=== PATIENT | female | born 1955 | race Caucasian/White ===

== ENCOUNTER 2019-12-22 08:55 | Outpatient (CLI) | payer MEDICARE, BC, SELFPAY ==
--- NOTE | 2019-12-22 09:08 | MM_ITS ---
WS: [id number] BILATERAL DIGITAL DIAGNOSTIC MAMMOGRAM MAMMOGRAPHY WITH CAD CLINICAL INFORMATION: PAINFUL BREASTS HISTORY: COMPARISON: November 15, 2018 TECHNIQUE: Bilateral CC, MLO, and ML views. FINDINGS: History of bilateral breast reduction. Scattered fibroglandular densities bilaterally. No suspicious focal mass, asymmetry, calcifications, or architectural distortion. No focal abnormalit ies left breast. Ultrasound left breast is pending. ULTRASOUND BREAST LEFT TECHNIQUE: Ultrasound left breast focused area of concern. CLINICAL INFORMATION: PAINFUL BREASTS COMPARISON: None. FINDINGS: Ultrasound left breast 2:00 position area of palpable concern. Hypoechoic slightly lobulated lesion a t the 2:00 position 2 cm from the nipple. This lesion is somewhat ill-defined and appears taller than wide. Hypoechoic lesion measures approximately 7.6 x 3.5 x 6.0 mm and is indeterminate. Recommend fu rther evaluation with ultrasound-guided biopsy. Additional tiny incidental cystic lesion at the 2:00 position measuring 3.1 x 1.9 mm MM/[place] [id number] IMPRESSION: BI-RADS: 4B-Suspicious: Intermediate FOLLOW UP: US Guided Biopsy Recommended
== END 2019-12-22 08:56 | disposition home or self-care (01) ==
PROVIDERS: Family Provider Family Medicine; PCP Family Medicine; Visit Provider Family Medicine
DX: N63.20 Unspecified lump in the left breast, unspecified quadrant (principal); N64.4 Mastodynia; N64.89 Other specified disorders of breast
CPT/HCPCS: 76642; 77066

== ENCOUNTER 2020-01-05 12:09 | Outpatient (CLI) | payer MEDICARE, BC, SELFPAY ==
--- NOTE | 2020-01-05 12:16 | US_ITS ---
WS: [id number] ULTRASOUND-GUIDED LEFT BREAST BIOPSY HISTORY: LT BREAST MASS at 2:00 COMPARISON: 12/22/2019 Procedure, risks and complications are explained to the patient. Medications are reviewed. Consent is obtained. The mass in the LEFT breast is localized with ultrasound. Skin is cleansed with ChloraPrep and anesth etized with 1% buffered lidocaine. Small dermatome is made. Under sterile conditions mass is biopsied with a 14-gauge Achieve needle. Multiple core biopsies are performed. Material placed in formalin an d sent to pathology for review. No complications encountered. Breast tissue marker (Bard ultrasound enhanced ribbon): Single Patient left the radiology suite with no complications. Patient is instructed to return [place] [facility] with any concerns. 1. Uncomplicated core needle biopsy LEFT breast mass at 2:00. US/[place] [id number] IMPRESSION: PATHOLOGY: Benign breast tissue with interlobular fibrosis. No malignancy. RECOMMENDATION: Annual mammogram. Mammography, ultrasound and pathological findings are concordant.
== END 2020-01-05 12:10 | disposition home or self-care (01) ==
LOC: RAD 12:15
PROVIDERS: Family Provider Family Medicine; PCP Family Medicine; Visit Provider Family Medicine
DX: N63.21 Unspecified lump in the left breast, upper outer quadrant (principal)
CPT/HCPCS: 19083; 19285; 76942; 88305; J2001

== ENCOUNTER 2020-10-30 13:19 | Outpatient (CLI) | payer MEDICARE, BC, SELFPAY ==
--- NOTE | 2020-10-30 13:24 | XR_ITS ---
WS: [id number] DEXA (DUAL ENERGY X-RAY ABSORPTIOMETRY) Bone mineral density was performed using a [employer]It machine. HISTORY: Osteoporosis. COMPARISON: 09/27/2018 Lumbar spine BMD (L1-L4): 0.867 g/cm2 T score: -2.6 Z score: -1.4 Total hip BMD: Left: 0.907 g/cm2. T score: -0.8 Z score: 0.2 Right: 0.890 g/cm2. T score: -0.9 Z score: 0.0 10 year probability of a major osteoporotic fracture is 9.5%. Compared to the prior study from 09/27/2018. Lumbar spine bone mineral density has decrease by 0.9%. Bilateral hips bone mineral density has decreased by 2.3%. XR/XR DEXA peripheral [id number] IMPRESSION: OSTEOPOROSIS based upon the WHO classification for females. Significant decrease in bone mineral density within the hips since the prior .
== END 2020-10-30 13:20 | disposition home or self-care (01) ==
LOC: RADWPI 13:22
PROVIDERS: PCP Family Medicine; Visit Provider Family Medicine
DX: M81.0 Age-related osteoporosis without current pathological fracture (principal)
CPT/HCPCS: 77081

== ENCOUNTER 2021-01-22 10:33 | Outpatient (CLI) | payer MEDICARE, BC, SELFPAY ==
[2021-01-22 10:44] VITALS: BP 162/82; PULSE 66; RESP 18; TEMP 36.6; O2SAT 98
[2021-01-22] MEDS: denosumab 60 mg SDV SUBCUT (10:55)
== END 2021-01-22 10:34 | disposition home or self-care (01) ==
LOC: ONCMED 10:34
PROVIDERS: PCP Family Medicine; Visit Provider Family Medicine
DX: M81.0 Age-related osteoporosis without current pathological fracture (principal)
CPT/HCPCS: 96372; J0897

== ENCOUNTER → 2021-01-24 08:54 | Outpatient (BNVA) | payer MEDICARE, BC, SELFPAY | PROVIDERS: PCP Family Medicine; Referring Provider Family Medicine; Visit Provider Urology | DX: N39.9 Disorder of urinary system, unspecified (principal); R31.9 Hematuria, unspecified; N39.0 Urinary tract infection, site not specified | CPT/HCPCS: 81003; 87077; 87086; 87184 ==

== ENCOUNTER 2021-02-05 13:31 | Outpatient (CLI) | payer MEDICARE, BC, SELFPAY ==
--- NOTE | 2021-02-05 13:39 | MM_ITS ---
WS: [id number] BILATERAL DIGITAL SCREENING MAMMOGRAPHY WITH CAD CLINICAL INFORMATION: SCREENING HISTORY: Screening mammogram. No current complaints. COMPARISON: December 22, 2019 TECHNIQUE: Bilateral CC and MLO views. FINDINGS: Bilateral breast reduction Scattered fibroglandular densities bilaterally. No suspicious focal mass, asymmetry, calcifications, or architectural distortion. No evidence of malignancy. Punctate and lucent centered calcifications. Biopsy clip left breast. MM/[place] [id number] IMPRESSION: BI-RADS: 2-Benign FOLLOW UP: 1 Year Follow-up Recommend return to annual screening mammography.
== END 2021-02-05 13:32 | disposition home or self-care (01) ==
LOC: RADSHAW 13:37
PROVIDERS: PCP Family Medicine; Visit Provider Family Medicine
DX: Z12.31 Encounter for screening mammogram for malignant neoplasm of breast (principal)
CPT/HCPCS: 77067

== ENCOUNTER → 2021-02-28 09:17 | Outpatient (BNVA) | payer MEDICARE, BC, SELFPAY | PROVIDERS: PCP Family Medicine; Visit Provider Urology | DX: N39.0 Urinary tract infection, site not specified (principal) | CPT/HCPCS: 81003 ==

== ENCOUNTER → 2021-04-15 10:59 | Outpatient (BNVA) | payer MEDICARE, BC, SELFPAY | PROVIDERS: PCP Family Medicine; Visit Provider Urology | DX: R31.29 Other microscopic hematuria (principal) | CPT/HCPCS: 81003; 87077; 87086; 87184 ==

== ENCOUNTER → 2021-07-15 09:03 | Outpatient (BNVA) | payer MEDICARE, BC, SELFPAY | PROVIDERS: PCP Family Medicine; Visit Provider Urology | DX: N39.0 Urinary tract infection, site not specified (principal); R31.29 Other microscopic hematuria | CPT/HCPCS: 81003; 87086; 88112 ==

== ENCOUNTER 2021-08-05 09:08 | Outpatient (CLI) | payer MEDICARE, BC, SELFPAY ==
--- NOTE | 2021-08-05 09:00 | CT_ITS ---
WS: [id number] CT ABDOMEN PELVIS TECHNIQUE: Noncontrast CT of the abdomen and contrast-enhanced CT of the abdomen and pelvis with bryanna nal and sagittal reformatted images. CLINICAL INFORMATION: MICROSCOPIC HEMATURIA COMPARISON: None. DLP: 2879.[address] scans at [facility] use at least one of these dose optimization techniques: automated e xposure control; mA and/or kV adjustment per patient size (includes targeted exams where dose is matc hed to clinical indication); or iterative reconstruction. FINDINGS: Tiny nonobstructing calyceal tip calculi bilaterally. 6 mm calculus in the right renal pelvis without evidence of obstruction. Incidental extra renal pelvi bilaterally. Normal bilateral renal parenchyma l enhancement. Normal cortical medullary phase. Normal excretion. No obstructing ureteral calculi. No hydronephrosis. Small left renal cyst measuring 7 mm. Lung bases are well aerated. Mild diffuse fatty infiltration of the liver. Normal gallbladder. Normal spleen. Small esophageal hiatal hernia. Adrenal glands are normal. Mild fatty atrophy of the pancrea s. Normal sigmoid colon. Fat-containing umbilical hernia. Normal caliber abdominal aorta. CT/CT abdomen pelvis wo/w [id number] IMPRESSION: 1. 6 mm right renal pelvic calculus without evidence of obstruction. 2. Tiny nonobstructing calyceal tip calculi bilaterally. 3. Normal renal parenchymal enhancement. Normal cortical medullary phase and n ephrographic phase. Normal excretion. 4. No filling defects in the ureters. 5. Small left renal cyst measuring 7 mm. 6. Mild diffuse fatty infiltration of the liver. 7. Small esophageal hiatal hernia. 8. No other significant findings.
[2021-08-05 10:14] LABS: Blood Urea Nitrogen 17 mg/dL (8-23); Glomerular Filtration Rate 71.8 mL/min (90-130)
[2021-08-05] MEDS: iohexol 300 mg/mL 100 mL Btl IV (10:35)
== END 2021-08-05 09:09 | disposition home or self-care (01) ==
LOC: RAD 09:10
PROVIDERS: PCP Family Medicine; Visit Provider Urology
DX: R31.29 Other microscopic hematuria (principal); Z20.822 Contact with and (suspected) exposure to COVID-19; K44.9 Diaphragmatic hernia without obstruction or gangrene; K76.0 Fatty (change of) liver, not elsewhere classified; Q61.01 Congenital single renal cyst
CPT/HCPCS: 36415; 74178; 81003; 82565; 84520; 87635

== ENCOUNTER 2021-08-20 22:47 | Emergency (ER) | payer MEDICARE, BC, SELFPAY ==
--- NOTE | 2021-08-20 22:48 | XRR_ITS ---
PROCEDURE INFORMATION: Exam: XR Chest Exam date and time: 08/20/2021 10:48 PM Age: 65 years old Clinical indication: Pain; Shortness of breath; Patient HX: Central chest pressure with SOB. 2 weeks post covid infection. ; Additional info: Cp TECHNIQUE: Imaging protocol: XR of the chest. Views: 1 view. COMPARISON: CT abdomen pelvis wo/w [id number] 08/05/2021 10:29 AM FINDINGS: Lungs: Unremarkable. No consolidation. Pleural spaces: Unremarkable. No pleural effusion. No pneumothorax. Heart/Mediastinum: Unremarkable. No cardiomegaly. Bones/joints: Unremarkable. XR/XR chest 1V portable [id number] IMPRESSION: No acute findings. Radiation Dose CTDIVOL = (mGy): DLP = (mGy-cm)
--- NOTE | 2021-08-20 22:49 | ECG_ITS ---
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 Measurements Intervals [place] Rate: 76 P: 70 [place]: 142 QRS: 66 QRSD: 90 T: 61 QT: 416 QTc: 469 Interpretive Statements SINUS RHYTHM Compared to ECG 07/11/2017 13:27:37 T-wave abnormality no longer present Electronically Signed On 08-20-2021 23:48:11 CRANKSHAFT BALANCER by Lorin Guevara M.D. [id number]
[2021-08-20 22:55] VITALS: BP 174/90; PULSE 83; RESP 19; TEMP 36.6; O2SAT 97; BMI 27.4
--- NOTE | 2021-08-20 22:56 | W.ED.CHESTPA ---
HPI - Chest Pain General: Chief Complaint: Chest Pain Stated Complaint: Chest pain Time Seen by Provider: 08/20/21 22:49 Source: patient Mode of arrival: ambulatory Limitations: no limitations History of Present Illness: HPI narrative: 65-year-old female who states she tested positive for Covid 2 weeks ago states that she had a pretty mild course that her to have any difficulty but states that starting today she been having some slight dyspnea and mild chest pain states the pains been a sharp pain that she rates 2 out of 10 a slight cough to states [facility] was prescribed steroids and antibiotics but is concerned as her pain continued and she is worried about a possible blood clot she is in no distress here denies any vomiting diarrhea or fever. Associated symptoms: Reports dyspnea; Deny abdominal pain, fever(s), nausea or vomiting Review of Systems Const: Denies: fever(s), chills, body aches or change in appetite Eyes: Denies: blurry vision or eye discomfort ENMT: Denies: throat pain or dental pain Card: Reports: chest pain Resp: Reports: dyspnea GI: Denies: abdominal pain, nausea, vomiting or diarrhea : Denies: dysuria Musc: Denies: neck pain or back pain Skin/Breast: Denies: rash Neuro: Denies: headache(s) Psych: Denies: depression Edilberto/Lymph: Denies: easy bruising All/Imm: Denies: urticaria PFSH ED PFSH: Medical History History of nonmelanoma skin cancer Microscopic hematuria Recurrent UTI Seasonal asthma Surgical History H/O: knee surgery History of hysterectomy S/P bilateral breast reduction Family History Mother Diabetes Father Chronic kidney disease (CKD) Social History Alcohol intake: current Alcohol intake frequency: few times a month Alcohol type: wine Marital status: Current occupational status: retired History of recent travel: No Physical Exam Const: COMMON NORMALS: no acute distress, patient oriented x3 and healthy appearing HENMT: COMMON NORMALS: normocephalic and atraumatic HEAD & SCALP: normocephalic and atraumatic Eye: COMMON NORMALS: Equal, round and reactive pupils present and EOMs intact bilaterally PUPIL: Yes Equal, round and reactive pupils present Neck/C-Spine: COMMON NORMALS: full ROM and supple Chest: COMMONS NORMALS: normal inspection of the chest and normal palpation of entire chest wall Resp: COMMON NORMALS: normal respiratory effort, No retractions, No use of accessory muscles and clear to auscultation bilaterally AUSCULTATION: clear to auscultation bilaterally Cardio: COMMON NORMALS: regular rate, regular rhythm and No murmurs present (Cardio) RATE: regular rate RHYTHM: regular rhythm GI: COMMON NORMALS: Normal to inspection, nondistended, normoactive bowel sounds present, Soft to palpation, non-tender and no masses PALPATION: Yes Soft to palpation Extremity: COMMON NORMALS: normal to inspection and full ROM Neuro: COMMON NORMALS: patient oriented x3, moves all extremities and no focal motor deficits Psych: COMMON NORMALS: mental status grossly normal, Normal thought process present and cooperative THOUGHT PROCESS: Normal thought process present Skin: COMMON NORMALS: no rashes or lesions noted and no wounds GENERAL SKIN EXAM: no rashes or lesions noted Course Vital Signs: Vital signs: Vital Signs Temperature 98 F 08/20/21 22:55 Pulse Rate 68 08/21/21 00:28 Respiratory Rate 17 08/21/21 00:28 Blood Pressure 150/82 08/21/21 00:28 Pulse Oximetry 97 08/21/21 00:28 MDM - Chest Pain MDM Narrative: Medical decision making narrative: Patient presents with dyspnea that is mild in nature patient's CTA of the chest here is negative no signs of pulmonary medicine patient stable for discharge is to follow-up with PCP and return if worsening. Patient's troponin here is negative no signs of acute coronary syndrome. Lab Data: Labs: Lab Results 08/20/21 08/20/21 08/20/21 23:01 23:01 23:01 WBC 6.3 10^3/uL 10^3/ uL (4.0-10.0) RBC 4.43 10^6/uL 10^6 /uL (4.1-5.3) Hgb 13.9 g/dL g/dL (11.5-15.3) Hct 39.5 % % (37.0-47.0) MCV 89.2 fl fl (81-99) MCH 31.4 pg pg (28.0-34.0) MCHC 35.2 g/dL g/dL (30.0-36.0) RDW 11.8 % L % (12.1-15.1) Plt Count 197 10^3/cmm 10^3 /cmm (130-400) MPV 11.9 fL H fL (7.4-10.4) Neut % (Auto) 86.5 % % Lymph % (Auto) 12.2 % % [place] % (Auto) 0.8 % % Eos % (Auto) 0.0 % % Baso % (Auto) 0.0 % % Neut # (Auto) 5.47 10^3/uL 10^3 /uL (1.8-7.7) Lymph # (Auto) 0.8 10^3/uL 10^3/ uL (0.8-4.8) [place] # (Auto) 0.1 10^3/uL L 10^ 3/uL (0.2-0.9) Eos # (Auto) 0.0 10^3/uL 10^3/ uL (0.0-0.8) Baso # (Auto) 0.0 10^3/uL 10^3/ uL (0.0-0.1) Nucleated RBC % (a uto) 0 % % Nucleated RBCs # 0.0 /100WBC /100W BC D-Dimer 0.85 ug/mIFEU H u g/mIFEU (0-0.59) Sodium 139 mmol/L mmol/L (136-145) Potassium 3.7 mmol/L mmol/L (3.5-5.1) Chloride 105 mmol/L mmol/L (98-107) Carbon Dioxide 19 mmol/L L mmol/ L (22-29) Anion Gap 18.7 (5-19) BUN 19 mg/dL mg/dL (8-23) Creatinine 0.8 mg/dL mg/dL (0.5-0.9) GFR Calculation 71.8 mL/min L mL/ min (90-130) Glucose 223 mg/dL H mg/dL (65-115) Calculated Osmolal ity 297 mOsm/kg H mOs m/kg (285-295) Calcium 8.7 mg/dL mg/dL (8.5-10.5) Total Bilirubin 0.2 mg/dL mg/dL (0.15-1.2) AST 11 U/L U/L (0-32) ALT 11 U/L U/L (0-33) Alkaline Phosphata se 64 IU/L IU/L (35-105) Troponin T Baselin e Total Protein 6.5 g/dL L g/dL (6.6-8.7) Albumin 4.3 g/dL g/dL (3.5-5.2) Globulin 2.2 g/dL g/dL (1.3-4.6) 08/20/21 23:01 WBC RBC Hgb Hct MCV MCH MCHC RDW Plt Count MPV Neut % (Auto) Lymph % (Auto) [place] % (Auto) Eos % (Auto) Baso % (Auto) Neut # (Auto) Lymph # (Auto) [place] # (Auto) Eos # (Auto) Baso # (Auto) Nucleated RBC % (a uto) Nucleated RBCs # D-Dimer Sodium Potassium Chloride Carbon Dioxide Anion Gap BUN Creatinine GFR Calculation Glucose Calculated Osmolal ity Calcium Total Bilirubin AST ALT Alkaline Phosphata se Troponin T Baselin e 6 ng/L ng/L (0-10) Total Protein Albumin Globulin Imaging Data^: CXR: Attestation: I personally reviewed and interpreted this imaging study as follows: My impression: No acute abnormality CT Chest: Attestation: I personally reviewed and interpreted this imaging study as follows: Radiologist's impression: [address] [address] [address] Scan Report Signed Patient: Nancy Olmos Unit #: [id number] : 1955 Age/Sex: 65 / F ADM Date: 08/20/21 Loc: ER Room/Bed: Attending Dr: Ordering Provider/Ordering MD: Jamie Mccauley MD Date of Service: 08/20/21 Procedure(s): CT angio chest PE protcl [id number] Accession Number(s): [id number] Report Number: [id number] PROCEDURE INFORMATION: Exam: CTA Chest With Contrast Exam date and time: 08/20/2021 11:56 PM Age: 65 years old Clinical indication: Abnormal findings; Abnormal diagnostic tests; Elevated d-dimer; Shortness of breath; Additional info: SOB TECHNIQUE: Imaging protocol: Computed tomographic angiography of the chest with contrast. 3D rendering (Not supervised by radiologist): MIP and/or 3D reconstructed images were created by the technologist. Radiation optimization: All CT scans at this facility use at least one of these dose optimization techniques: automated exposure control; mA and/or kV adjustment per patient size (includes targeted exams where dose is matched to clinical indication); or iterative reconstruction. Contrast material: OMNI 350; Contrast volume: 66 ml; Contrast route: INTRAVENOUS (IV); COMPARISON: CR (CHEST, ) 08/20/2021 10:57 PM RADIATION DOSE METRICS: Total DLP (mGy-cm): 532.93 FINDINGS: Pulmonary arteries: Normal. No pulmonary emboli. Aorta: Unremarkable. No aortic aneurysm. No aortic dissection. Thyroid: Peripherally calcified left thyroid nodule measures 15 mm. No dedicated follow-up recommended. Lungs: Unremarkable. No consolidation. No masses. Pleural spaces: Unremarkable. No pneumothorax. No pleural effusion. Heart: Unremarkable. No cardiomegaly. No pericardial effusion. Lymph nodes: Unremarkable. No enlarged lymph nodes. Bones/joints: Unremarkable. No acute fracture. Soft tissues: Unremarkable. CT/CT angio chest PE protcl [id number] IMPRESSION: Negative CT angiogram of the chest. No acute abnormality. COMMENTS: Consistent with the [employer]'s Incidental Findings Committee white paper (J Am Roselia Radiol 2015): In patients aged 35 years and older with an incidental thyroid nodule equal to or greater than 1.[address], MRI or extrathyroidal US, further evaluation with dedicated thyroid US is recommended for patients with normal life expectancy and without comorbidities. For smaller nodules without suspicious features, no further evaluation or follow up is recommended. Radiation Dose CTDIVOL = (mGy): DLP = 532.93 (mGy-cm) Dictated By: Basilio Epperson Signed By: Basilio Epperson Signed Date/Time: 08/21/21 0040 EKG Data^: EKG 1: Attestation: I personally reviewed and interpreted this EKG as follows: EKG interpretation date: 08/20/21 EKG interpretation time: 23:34 Interpretation: Normal sinus rhythm heart rate [address] or T wave normalities QRS 90 QTC 446 Discharge Plan Discharge Patient Disposition: Home Clinical Impression: Dyspnea Chest pain Qualifiers: Chest pain type: unspecified Qualified Code(s): R07.9 - Chest pain, unspecified Condition: Stable Prescriptions: No Action fluticasone propion-salmeterol [Advair Diskus] 100-50 mcg/dose blister with device 1 inh INHALATION BID PRNRF: 0 montelukast [Singulair] 10 mg tablet 10 mg PO DAILY PRNRF: 0 zolpidem [Ambien] 10 mg tablet PO PRNRF: 0 albuterol sulfate 90 mcg/actuation HFA aerosol inhaler 1 inh inhalation .PRN RF: 0 nitrofurantoin monohyd/m-cryst 100 mg capsule See Rx Instructions .ROUTE .COMPLEX RF: 0 nitrofurantoin macrocrystal 100 mg capsule 100 mg PO DAILY Qty: 30 RF: 3 Discharge Orders: Discharge ED (Routine); Ordered 08/21/21 Ordered By: Jamie Mccauley Referrals: Magdiel Sutton MD [Primary Care Provider] - 1-3 days Discharge Diet: Advance as tolerated Discharge Activity: Resume usual activity Patient Instructions: Chest Pain (ED) Coding Level of Care Code ED Corporate Human Resources Manager for Chg Fwd Exam Comprehensive
[2021-08-20 23:43] LABS: Hematocrit 39.5 % (37.0-47.0); Hemoglobin 13.9 g/dL (11.5-15.3); Lymphocytes # 0.8 10^3/uL (0.8-4.8); Lymphocytes % 12.2 %; Mean Corpuscular HGB Conc 35.2 g/dL (30.0-36.0); Mean Corpuscular Hemoglobin 31.4 pg (28.0-34.0); Mean Corpuscular Volume 89.2 fl (81-99); Mean Platelet Volume 11.9 fL (7.4-10.4); Monocytes # 0.1 10^3/uL (0.2-0.9); Monocytes % 0.8 %; Neutrophils # 5.47 10^3/uL (1.8-7.7); Neutrophils % 86.5 %; Nucleated Red Blood Cells % 0 %; Platelet Count 197 10^3/cmm (130-400); Red Blood Count 4.43 10^6/uL (4.1-5.3); Red Cell Distribution Width 11.8 % (12.1-15.1); White Blood Count 6.3 10^3/uL (4.0-10.0)
[2021-08-20 23:48] LABS: Troponin(5th) Baseline 6 ng/L (0-10)
[2021-08-20 23:50] LABS: Alanine Aminotransferase 11 U/L (0-33); Albumin Level 4.3 g/dL (3.5-5.2); Alkaline Phosphatase 64 IU/L (35-105); Anion Gap 18.7 (5-19); Aspartate Amino Transferase 11 U/L (0-32); Blood Urea Nitrogen 19 mg/dL (8-23); Calcium 8.7 mg/dL (8.5-10.5); Carbon Dioxide 19 mmol/L (22-29); Chloride 105 mmol/L (98-107); Globulin 2.2 g/dL (1.3-4.6); Glomerular Filtration Rate 71.8 mL/min (90-130); Glucose 223 mg/dL (65-115); Osmolality Calculated 297 mOsm/kg (285-295); Potassium 3.7 mmol/L (3.5-5.1); Sodium 139 mmol/L (136-145); Total Bilirubin 0.2 mg/dL (0.15-1.2); Total Protein 6.5 g/dL (6.6-8.7)
[2021-08-20 23:54] LABS: D Dimer 0.85 ug/mIFEU (0-0.59)
--- NOTE | 2021-08-20 23:56 | CTR_ITS ---
PROCEDURE INFORMATION: Exam: CTA Chest With Contrast Exam date and time: 08/20/2021 11:56 PM Age: 65 years old Clinical indication: Abnormal findings; Abnormal diagnostic tests; Elevated d-dimer; Shortness of breath; Additional info: SOB TECHNIQUE: Imaging protocol: Computed tomographic angiography of the chest with contrast. 3D rendering (Not supervised by radiologist): MIP and/or 3D reconstructed images were created by the technologist. Radiation optimization: All CT scans at this facility use at least one of these dose optimization techniques: automated exposure control; mA and/or kV adjustment per patient size (includes targeted exams where dose is matched to clinical indication); or iterative reconstruction. Contrast material: OMNI 350; Contrast volume: 66 ml; Contrast route: INTRAVENOUS (IV); COMPARISON: CR (CHEST, ) 08/20/2021 10:57 PM RADIATION DOSE METRICS: Total DLP (mGy-cm): 532.93 FINDINGS: Pulmonary arteries: Normal. No pulmonary emboli. Aorta: Unremarkable. No aortic aneurysm. No aortic dissection. Thyroid: Peripherally calcified left thyroid nodule measures 15 mm. No dedicated follow-up recommended. Lungs: Unremarkable. No consolidation. No masses. Pleural spaces: Unremarkable. No pneumothorax. No pleural effusion. Heart: Unremarkable. No cardiomegaly. No pericardial effusion. Lymph nodes: Unremarkable. No enlarged lymph nodes. Bones/joints: Unremarkable. No acute fracture. Soft tissues: Unremarkable. CT/CT angio chest PE protcl [id number] IMPRESSION: Negative CT angiogram of the chest. No acute abnormality. COMMENTS: Consistent with the [employer]'s Incidental Findings Committee white paper (J Am Roselia Radiol 2015): In patients aged 35 years and older with an incidental thyroid nodule equal to or greater than 1.[address], MRI or extrathyroidal US, further evaluation with dedicated thyroid US is recommended for patients with normal life expectancy and without comorbidities. For smaller nodules without suspicious features, no further evaluation or follow up is recommended. Radiation Dose CTDIVOL = (mGy): DLP = 532.93 (mGy-cm)
[2021-08-21] MEDS: iohexol 350 mg/mL 100 mL Btl IV (00:12)
[2021-08-21 00:28] VITALS: BP 150/82; PULSE 68; RESP 17; O2SAT 97
[2021-08-21 01:09] VITALS: BP 150/79; PULSE 68; RESP 18; O2SAT 97
== END 2021-08-21 01:12 | disposition home or self-care (01) ==
PROVIDERS: Emergency Provider Emergency Medicine; PCP Family Medicine
DX: R07.9 Chest pain, unspecified (principal); R06.00 Dyspnea, unspecified
CPT/HCPCS: 71045; 71275; 80053; 84484; 85025; 85378; 93005; 99283; Q9967

== ENCOUNTER 2021-08-28 11:47 | Outpatient (CLI) | payer MEDICARE, BC, SELFPAY ==
[2021-08-28 11:56] VITALS: BP 137/83; PULSE 80; RESP 18; TEMP 36.6; O2SAT 96
[2021-08-28] MEDS: denosumab 60 mg SDV SUBCUT (12:02)
[2021-08-28 12:08] VITALS: BP 135/79; PULSE 77; RESP 18; TEMP 36.6; O2SAT 96
== END 2021-08-28 11:48 | disposition home or self-care (01) ==
LOC: ONCMED 11:52
PROVIDERS: PCP Family Medicine; Visit Provider Family Medicine
DX: M81.0 Age-related osteoporosis without current pathological fracture (principal)
CPT/HCPCS: 96372; J0897

== ENCOUNTER 2021-09-01 10:57 | Day surgery (SDC) | payer MEDICARE, BC, SELFPAY ==
[2021-08-29 14:17] VITALS: BMI 27.9
--- NOTE | 2021-09-01 10:53 | XR_ITS ---
WS: [id number] ABDOMEN KUB CLINICAL INFORMATION: Renal/ureteral calculi. COMPARISON: CT August 05, 2021 FINDINGS: 9 mm right lower pole renal parenchymal calculus appears stable. A few additional subcentimeter bilat eral renal parenchymal calculi. Pelvic phleboliths. No definite ureteral calculi. XR/XR KUB [id number] Impression: 9 mm right lower pole renal parenchymal calculus.
[2021-09-01 11:35] VITALS: BP 163/94; PULSE 77; RESP 18; TEMP 36.9; O2SAT 100
[2021-09-01] MEDS: sodium chloride 0.9% 1,000 ML 30 ML IV (11:36)
--- NOTE | 2021-09-01 12:27 | P.HPUD_ITS ---
Surgery/Procedure H&P Update DATE OF PROCEDURE: September 01, 2021 DATE H&P PERFORMED: 08/05/21 H&P UPDATE INFORMATION: I have reviewed H&P completed within last 30 days, I have examined patient prior to procedure, No changes to prior documentation and H&P is in [facility] EMR on date indicated CHANGES TO PREVIOUS DOCUMENTATION: Has recovered well since recently diagnosed with Covid. PREOP DIAGNOSIS: Right renal calculus PLANNED PROCEDURE: Operation Date: 09/01/21 12:00 Proposed Procedures p Cystoscopy [id number] N20.0(Right) - Phillip Kc MD s ESWL(Right) - Phillip Kc MD s Ureteral Stent Placement(Right) - Phillip Kc MD
[2021-09-01] MEDS: levofloxacin-dextrose 5 % 500 MG/100 ML PREMIX 100 MG IV (12:49)
[2021-09-01] MEDS: iohexol 300 mg/mL 50 mL Btl (OR ONLY) XX (13:14)
--- NOTE | 2021-09-01 13:51 | PM.OP ---
Operative Report Date of procedure: September 01, 2021 Pre-op Diagnosis: Right renal calculus Post-op diagnosis: same Procedure Done: 1. Right renal extracorporeal shockwave lithotripsy 2. Cystoscopy with right ureteral stent (6 [place] by 26 cm double-pigtail without string Pathology: none sent Surgeon: Yamini Appraiser Oil [employer] Water: Essie Anesthesia: General Urine output: not measured Complications: None Findings: Stone broke up very well. Stent left indwelling at the completion procedure. Condition: stable Disposition: PACU Brief History: Mrs. Olmos is a very pleasant 65-year-old white female recently evaluated for hematuria and found to have a moderate size right renal calculus. She also had urinary CYTOLOGIES that showed suspicious characteristics. Was offered the option of endoscopic evaluation and possible laser lithotripsy at the same time versus treating the stone first with routine conventional ESWL and follow-up cytology after that. Ultimately she elected ESWL and stent. Procedure: After routine preoperative evaluation examination and obtaining of informed consent she was taken to the operating suite on 09/01/2021 where general anesthesia was administered without difficulty after appropriate timeout was performed, SCDs confirmed to be functioning, preoperative antibiotics administered, beta-linda protocol confirmed. Positioned on the Dornier unit such that the stone was located the focal point utilizing biplanar fluoroscopy with the shock head positioned posteriorly. Shockwave therapy was initiated intensity of 1 and slowly ramped up to an intensity of 4 with a 3-minute pause after approximately 300 shocks. The rate was initiated at 70 and maintained that throughout the procedure. The stone showed early and significant change with treatment. It appeared to have broken into really 2 main pieces 1 migrating more proximally and one staying in the area of the lower pole. The more proximal stone was then fragmented and after about 1000 shocks the focal point was then brought down to the lower stone which also showed substantial change. About 750 shocks were required to break it up. The final 500 shocks were administered again to the more proximal stone cluster. At the completion of the procedure it appeared that both areas were completely fragmented. Based on the bulk of the stone that was decided to place a stent temporarily. She was then prepped and draped in usual sterile fashion in dorsolithotomy position paying careful attention to avoiding pressure points. Cystoscope was advanced into the bladder and a flexible tip guidewire was advanced up without difficulty. A 6 [place] by 26 cm double-pigtail stent was advanced over the guidewire through the cystoscope into appropriate position as confirmed via fluoroscopy and cystoscopy. Bladder was drained and the procedure was completed. She tolerated procedure well without complications and was awakened in the operating room and returned to recovery in stable condition PLANS: 1. Anticipate discharge from outpatient surgery 2. Follow-up on Wednesday with KUB and possible cystoscopy stent removal.
--- NOTE | 2021-09-01 13:53 | ANES.PREANE2 ---
Pre-Anesthetic Assessment Pre-Anesthetic Assessment: Height/Weight: Height 1.65 m Weight 76.204 kg Temp Pulse Resp BP Pulse Ox 98.5 F 77 18 163/94 100 09/01/21 11:35 09/01/21 11:35 09/01/21 11:35 09/01/21 11:35 09/01/21 11:35 Preop Diagnosis: Right renal calculus Proposed Procedure: Operation Date: 09/01/21 12:00 Proposed Procedures p Cystoscopy 45182 41498 N20.0(Right) - Phillip Kc MD s ESWL(Right) - MD danyelle Bustillo Ureteral Stent Placement(Right) - Phillip Kc MD Was Beta Carlie taken within 24 hours: N/A Was Clonidine taken within 24 hours: N/A Last intake: Intake Last Liquid Date 08/31/21 Last Liquid Time 22:00 Last Solid Date 08/30/21 Social: Social History: No alcohol and No tobacco Exam: Pre-Anes Outpt Exam: alert, oriented x 3, clear to auscultation bilaterally and regular rate & rhythm Airway: Submandibular: WNL Cervical ROM: WNL MP: 2 Pulmonary: Pulmonary: Asthma Anesthetic Plan: ASA status: 2 Anesthesia: General Risk of > 500 ml blood loss (7ml/kg in children): No Meds/Allergies Current Medications: Current Medications Generic Name Dose Route Start Last Admin Trade Name Freq PRN Reason Stop Dose Admin Sodium Chloride 1,000 mls @ 30 ml s/hr 09/01/21 11:00 09/01/21 11:36 Sodium Chloride 0.9% IV 09/02/21 10:59 30 mls/hr .Q24H ADRIANNA Administration PFSH Anesthesia PFSH: Medical History History of nonmelanoma skin cancer Microscopic hematuria Recurrent UTI Seasonal asthma Surgical History H/O: knee surgery History of hysterectomy S/P bilateral breast reduction Family History Mother Diabetes Father Chronic kidney disease (CKD) Social History Alcohol intake: current Alcohol intake frequency: few times a month Alcohol type: wine Marital status: Current occupational status: retired History of recent travel: No Data Anesthesia Cardiac Studies: No Data to Display
[2021-09-01 13:57] VITALS: BP 147/88; PULSE 91; RESP 14; TEMP 36.1; O2SAT 100
[2021-09-01 14:02] VITALS: BP 142/59; PULSE 78; RESP 13; O2SAT 100
[2021-09-01 14:05] VITALS: BP 111/96; PULSE 80; RESP 17; TEMP 36.4; O2SAT 98
[2021-09-01 14:16] VITALS: BP 147/70; PULSE 76; RESP 16; TEMP 36.4; O2SAT 96
[2021-09-01] MEDS: HYDROcodone-acetaminophen 5-325 mg Tablet 1 TAB PO (14:21)
--- NOTE | 2021-09-01 14:59 | ANE.PACU2 ---
Inpatient post-anesthesia follow up: Airway intact: Yes Vital signs: Temperature 97.5 F Pulse Rate 76 Respiratory Rate 16 Blood Pressure 147/70 Pulse Oximetry 96 Oxygen Delivery Me thod Room Air Oxygen Flow Rate Fraction of Inspir ed Oxygen Hydration adequate: Yes Nausea and vomiting: No Pain level: 2 Mental status: Baseline
== END 2021-09-01 12:42 | disposition home or self-care (01) ==
PROVIDERS: PCP Family Medicine; Visit Provider Urology
PROC: 0TJB8ZZ Inspection of Bladder, Via Natural or Artificial Opening Endoscopic (ICD-10-PCS; CPT 52000; principal; 2021-09-01 12:00)
PROC: (CPT 50590; 2021-09-01 12:00)
PROC: (CPT 50605; 2021-09-01 12:00)
DX: N20.0 Calculus of kidney (principal); Z83.3 Family history of diabetes mellitus; Z84.1 Family history of disorders of kidney and ureter
CPT/HCPCS: 50590; 52332; 74018; C2625; J1100; J1956; J2405; J2704; J3010; J3490; J7030

== ENCOUNTER 2021-09-05 08:59 | Outpatient (CLI) | payer MEDICARE, BC, SELFPAY ==
--- NOTE | 2021-09-05 09:05 | XR_ITS ---
WS: [email or web address] XR KUB [id number] REASON FOR EXAM: RENAL STONE FINDINGS: Right ureteral stent is present. Cluster of small calculi overlying the upper pole of the right kidney. The previously demonstrated 9 mm calculus in the lower pole of the right kidney is now fragmented. No definite calculi fragments are seen along the course of the ureter or overlying the bladder. Small calculus overlying the lower pole of the left kidney. XR/XR KUB [id number] IMPRESSION: Right ureteral stent and fragmentation of right lower pole calculus.
== END 2021-09-05 09:00 | disposition home or self-care (01) ==
PROVIDERS: PCP Family Medicine; Visit Provider Urology
DX: N20.0 Calculus of kidney (principal); Z96.0 Presence of urogenital implants
CPT/HCPCS: 74018; 81003

== ENCOUNTER 2021-09-15 06:57 | Outpatient (CLI) | payer MEDICARE, BC, SELFPAY ==
--- NOTE | 2021-09-15 07:04 | XR_ITS ---
WS: [email or web address] KUB, AP view, 09/15/2021 Clinical Data: RIGHT RENAL STONE Comparison: KUB, 09/05/2021 Findings: The right ureteral stent remains in good position. There are calcifications in the right kidney uncha nged. There may be a small left renal calcification. There is a probable phlebolith adjacent to the d istal right ureteral stent. XR/XR KUB [id number] Impression: No change in right ureteral stent and right renal calcifications.
== END 2021-09-15 06:58 | disposition home or self-care (01) ==
LOC: RAD 07:00
PROVIDERS: PCP Family Medicine; Visit Provider Urology
DX: N20.0 Calculus of kidney (principal); Z96.0 Presence of urogenital implants
CPT/HCPCS: 74018; 81003

== ENCOUNTER 2021-09-29 13:46 | Outpatient (CLI) | payer MEDICARE, BC, SELFPAY ==
--- NOTE | 2021-09-29 13:50 | XR_ITS ---
WS: [email or web address] XR KUB [id number] REASON FOR EXAM: RIGHT RENAL STONE FINDINGS: Small upper pole right renal calculus unchanged compared to 09/01/2021. Multiple small stone fragment s collected in an inferior calyx in the lower pole of the right kidney which likely are not significa ntly changed compared to previous examination of 09/15/2021. Small calculus in the left kidney, unchanged. No calculi seen along the course of the right ureteral stent. No calculi seen overlying the bladder. No other significant abnormality of the abdomen or pelvis. XR/XR KUB [id number] IMPRESSION: Urinary tract calculi and right ureteral stent as above.
== END 2021-09-29 13:47 | disposition home or self-care (01) ==
LOC: RAD 13:48
PROVIDERS: PCP Family Medicine; Visit Provider Urology
DX: N20.0 Calculus of kidney (principal); Z96.0 Presence of urogenital implants
CPT/HCPCS: 74018; 81003; 82365; 88300

== ENCOUNTER 2021-11-04 09:03 | Outpatient (CLI) | payer MEDICARE, BC, SELFPAY ==
--- NOTE | 2021-11-04 09:00 | XR_ITS ---
WS: [email or web address] KUB, AP view, 11/04/2021 Clinical Data: retained ureteral stent Comparison: KUB, 09/29/2021. Findings: No abnormal intraabdominal masses are seen. The right ureteral catheter has been removed. There are c alcifications overlying both kidneys but both kidneys are also obscured by overlying fecal material i n colon gas. There is no dilatated small bowel or evidence of obstruction. XR/XR KUB [id number] Impression: 1. Removal of right ureteral catheter. 2. Possible small calcifications overlying both kidneys.
== END 2021-11-04 09:04 | disposition home or self-care (01) ==
LOC: RAD 09:10
PROVIDERS: PCP Family Medicine; Visit Provider Urology
DX: Z96.0 Presence of urogenital implants (principal)
CPT/HCPCS: 74018; 81003; 88112

== ENCOUNTER 2021-11-06 14:36 | Outpatient (CLI) | payer MEDICARE, SELFPAY ==
--- NOTE | 2021-11-06 14:46 | MR_ITS ---
WS: [email or web address] MRI BRAIN WITH HIGH-RESOLUTION IMAGING THROUGH THE INTERNAL AUDITORY CANALS WITHOUT AND WITH CONTRAST HISTORY: MIXED CONDUCTIVE SENSORINEURAL HEARING LOSS, right-sided tinnitus. COMPARISON: None available. TECHNIQUE: Multiplanar, multisequence imaging is performed through the brain. Additional 3 mm imaging performed in multiple planes through the internal auditory canal. Postcontrast imaging with 17 ml's of MultiHance. No acute intracranial hemorrhage, midline shift, edema or mass effect. No significant amount of small vessel ischemic disease. No significant atrophy. Pate-white matter dif ferentiation is well preserved. No focal areas of abnormal enhancement. Ventricles and extra-axial spaces are normal. No inferior displacement of cerebellar tonsils. Clivus and pituitary gland are normal. Internal and external auditory canals: Unremarkable. No fluid or abnormal signal. No enhancement. Cranial nerves VII and VIII complexes: Unremarkable. No enhancement or mass. Cerebellopontine angles: Normal. Paranasal sinuses: Normal. Mastoid air cells: Normal. Calvarium and scalp: Normal. Visualized telida of Ortega and dural venous sinuses demonstrate no abnormality. MR/MR iac's wo/w con* [id number] IMPRESSION: 1. Unremarkable internal auditory canals. No abnormal enhancement or fluid. Sy mmetric appearance of the 7th and 8th cranial nerves. 2. Normal MRI brain. No prior infarct or current infarct.
[2021-11-06] MEDS: gadobenate dimeglumine 20 mL vial IV (16:24)
== END 2021-11-06 14:37 | disposition home or self-care (01) ==
LOC: RAD 14:40
PROVIDERS: PCP Family Medicine; Visit Provider Specialist
DX: H90.6 Mixed conductive and sensorineural hearing loss, bilateral (principal); H93.A3 Pulsatile tinnitus, bilateral
CPT/HCPCS: 70553

== ENCOUNTER 2022-03-11 09:46 | Outpatient (CLI) | payer MEDICARE, BC, SELFPAY ==
[2022-03-11 09:56] VITALS: BP 130/77; PULSE 74; RESP 18; TEMP 36.3; O2SAT 98
[2022-03-11] MEDS: denosumab 60 mg SDV SUBCUT (10:04)
[2022-03-11 10:15] VITALS: BP 132/71; PULSE 69; RESP 18; TEMP 36.5; O2SAT 96
== END 2022-03-11 09:47 | disposition home or self-care (01) ==
PROVIDERS: PCP Family Medicine; Referring Provider Family Medicine; Visit Provider Family Medicine
DX: M81.0 Age-related osteoporosis without current pathological fracture (principal)
CPT/HCPCS: 96372; J0897

== ENCOUNTER 2022-03-13 07:53 | Outpatient (CLI) | payer MEDICARE, BC, SELFPAY ==
--- NOTE | 2022-03-13 08:04 | MM_ITS ---
WS: [email or web address] VIEWS: MLO and CC views both breasts. 3D digital tomosynthesis is also included in this exam. Comparison made with prior exam of 07/10/2015, 09/29/2016, 11/01/2017, 11/15/2018, 12/22/2019, 02/05/2021.. Findings: There was no sign of mass, architectural distortion or suspicious calcification in either breast. Bio psy marker in the upper outer quadrant of the left breast.Scattered fibroglandular densities MM/[place] [id number] Impression: BI-RADS: 2-Benign FOLLOW-UP: 1 Year Follow-up This mammogram was also analyzed by the Computer Aided Detection System R2 Imag e Motorcoach Operator.
== END 2022-03-13 07:54 | disposition home or self-care (01) ==
LOC: RAD 07:54
PROVIDERS: PCP Family Medicine; Visit Provider Family Medicine
DX: Z12.31 Encounter for screening mammogram for malignant neoplasm of breast (principal)
CPT/HCPCS: 77063; 77067

== ENCOUNTER 2022-05-05 09:40 | Outpatient (CLI) | payer MEDICARE, BC, SELFPAY ==
--- NOTE | 2022-05-05 09:30 | XR_ITS ---
WS: [email or web address] Exam: XR KUB [id number] Date/Time of Exam: 05/05/2022 9:45 AM Reason For Exam: right renal stone Comparison 11/04/2021. 3 mm calcification superimpose right kidney and could represent a renal stone. No bowel obstruction o r free air. No sign of organ enlargement. Regional bony elements are unremarkable. Nonspecific pelvic calcifications. XR/XR KUB [id number] IMPRESSION: 1. No acute abdominal finding. 2. 3 mm calcification superimposing the right renal silhouette that may represe nt a stone.
== END 2022-05-05 09:41 | disposition home or self-care (01) ==
LOC: RAD 09:40
PROVIDERS: PCP Family Medicine; Visit Provider Urology
DX: N20.0 Calculus of kidney (principal); R82.89 Other abnormal findings on cytological and histological examination of urine
CPT/HCPCS: 74018; 81003; 88112; 99213

== ENCOUNTER 2022-09-22 13:58 | Outpatient (CLI) | payer MEDICARE, BC, SELFPAY ==
[2022-09-22 14:24] VITALS: BP 146/75; PULSE 81; RESP 18; TEMP 36.9; O2SAT 94
[2022-09-22] MEDS: denosumab 60 mg SDV SUBCUT (14:50)
[2022-09-22 14:56] VITALS: BP 130/80; PULSE 67; RESP 18; TEMP 37.1; O2SAT 95
== END 2022-09-22 13:59 | disposition home or self-care (01) ==
LOC: ONCMED 14:00
PROVIDERS: PCP Family Medicine; Visit Provider Family Medicine
DX: M81.0 Age-related osteoporosis without current pathological fracture (principal)
CPT/HCPCS: 96372; J0897

== ENCOUNTER 2023-02-10 14:36 | Oncology outpatient (recurring) (ONCR) | payer MEDICARE, BC, SELFPAY ==
[2023-02-10 15:15] VITALS: BP 122/82; PULSE 71; RESP 16; TEMP 37.1; O2SAT 97
[2023-02-10] MEDS: denosumab 60 mg SDV SUBCUT (15:15)
== END 2023-02-17 23:59 | disposition home or self-care (01) ==
PROVIDERS: PCP Family Medicine; Visit Provider Family Medicine
DX: M81.0 Age-related osteoporosis without current pathological fracture (principal)
CPT/HCPCS: 96372; J0897

== ENCOUNTER 2023-04-13 13:37 | Outpatient (CLI) | payer MEDICARE, BC, SELFPAY ==
--- NOTE | 2023-04-13 13:51 | MM_ITS ---
WS: [email or web address] BILATERAL 3D TOMOSYNTHESIS DIGITAL SCREENING MAMMOGRAPHY WITH CAD CLINICAL INFORMATION: SCREENING HISTORY: Screening mammogram. No current complaints. COMPARISON: 2021 TECHNIQUE: Bilateral CC and MLO views. FINDINGS: Scattered fibroglandular densities bilaterally. No suspicious focal mass, asymmetry, calcifications, or architectural distortion. No evidence of malignancy. A few incidental punctate and lucent centered calcifications. Biopsy clip LEFT breast with small associated nodule unchanged. MM/[place] [id number] IMPRESSION: BI-RADS: 2-Benign FOLLOW UP: 1 Year Follow-up Recommend return to annual screening mammography.
== END 2023-04-13 13:38 | disposition home or self-care (01) ==
LOC: RAD 13:40 → MOBLMAM 13:51
PROVIDERS: PCP Family Medicine; Visit Provider Family Medicine
DX: Z12.31 Encounter for screening mammogram for malignant neoplasm of breast (principal)
CPT/HCPCS: 77063; 77067

== ENCOUNTER → 2023-06-10 08:23 | Outpatient (BNVA) | payer MEDICARE, BC, SELFPAY | PROVIDERS: PCP Family Medicine; Visit Provider Nurse Practitioner Family | DX: D18.01 Hemangioma of skin and subcutaneous tissue (principal); L82.1 Other seborrheic keratosis; L72.0 Epidermal cyst; L57.8 Other skin changes due to chronic exposure to nonionizing radiation; L82.0 Inflamed seborrheic keratosis; L91.8 Other hypertrophic disorders of the skin; L57.0 Actinic keratosis | CPT/HCPCS: 11200; 17000; 17110; 99213 ==

== ENCOUNTER 2023-06-21 14:27 | Outpatient (CLI) | payer MEDICARE, BC, SELFPAY ==
--- NOTE | 2023-06-21 14:30 | USCV_ITS ---
Nancy Olmos Age: 67 Gender: F : 1955 Exam Date: 06/21/2023 15:04 Ordering Phys: Magdiel Sutton MD Technologist: Rebeca Valencia Exam Location: [facility] [place] Indication: tachycardia BP: 140 / 78 HR: 71 Rhythm: Sinus Technical Quality: Good MEASUREMENTS (Male / Female) Normal Values 2D ECHO LV Diastolic Diameter PLAX 3.8 cm 4.2 - 5.9 / 3.9 - 5.3 cm LV Systolic Diameter PLAX 2.3 cm IVS Diastolic Thickness 0.8 cm 0.6 - 1.0 / 0.6 - 0.9 cm IVS Systolic Thickness 1.5 cm LVPW Diastolic Thickness 1.1 cm 0.6 - 1.0 / 0.6 - 0.9 cm LVPW Systolic Thickness 1.3 cm LVOT Diameter 2.1 cm LV Ejection Fraction 2D Teich 71.5 % LV Ejection Fraction MOD 2C 67.1 % LV Ejection Fraction 2C AL 67.4 % LA Diameter 2.2 cm LA Width 3.5 cm LA Height 3.7 cm RA Width 2.4 cm Aorta at Sinotubular Diameter 2.8 cm IVC Diameter 1.4 cm M-MODE MV E Point Septal Separation 0.3 cm DOPPLER AV Peak Velocity 123.0 cm/s LVOT Peak Velocity 126.0 cm/s AV Area Cont Eq vti 2.6 cm squared AV Area Cont Eq pk 3.5 cm squared MV Peak Velocity 86.0 cm/s MV Area PHT 4.0 cm squared Mitral E to A Ratio 0.8 MV E' Velocity 51.0 cm/s Mitral E to MV E' Ratio 11.2 Mitral E to LV E' Lateral Ratio 10.0 Mitral E to LV E' Septal Ratio 12.9 TR Peak Velocity 231.3 cm/s TR Peak Gradient 21.4 mmHg Right Atrial Pressure 5.0 mmHg Pulmonary Artery Systolic Pressu 26.4 mmHg PV Peak Velocity 99.0 cm/s RV Acceleration Time 0.1 s RV Ejection Time 0.3 s RV AcT/ET 0.4 FINDINGS Left Ventricle Normal left ventricular size, systolic function and wall thickness, with no regional wall motion abnormalities. Left ventricular ejection fraction is estimated at 70 %. Normal diastolic function. Right Ventricle Normal right ventricular size and systolic function. Right ventricular systolic pressure 26.4 mmHg. Right Atrium Normal right atrial size. Left Atrium Normal left atrial size. Mitral Valve Structurally normal mitral valve. No mitral valve stenosis. Trace mitral valve regurgitation. Aortic Valve Structurally normal trileaflet aortic valve. No aortic valve stenosis. No aortic valve regurgitation. Tricuspid Valve Structurally normal tricuspid valve. No tricuspid valve stenosis. Trace to mild tricuspid valve regurgitation. Pulmonic Valve Structurally normal pulmonic valve. No pulmonary valve stenosis. Trace pulmonary valve regurgitation. Pericardium No pericardial effusion. Aorta Normal size aortic root and proximal ascending aorta. IVC Normal IVC dimension with >50% respiratory change of the inferior vena cava. CONCLUSIONS 1. Normal left ventricular size, systolic function and wall thickness, with no regional wall motion abnormalities. Left ventricular ejection fraction is estimated at 70 %. Normal diastolic function. 2. Trace to mild tricuspid valve regurgitation. 3. Normal pulmonary artery pressure. 4. No prior similar studies to compare. Mini Collado MD (Electronically Signed) Final Date: 21 June 2023 15:52 S
== END 2023-06-21 14:28 | disposition home or self-care (01) ==
LOC: RAD 14:29
PROVIDERS: PCP Family Medicine; Visit Provider Family Medicine
DX: R00.0 Tachycardia, unspecified (principal); I07.1 Rheumatic tricuspid insufficiency
CPT/HCPCS: 93306

== ENCOUNTER 2023-08-17 07:47 | Oncology outpatient (recurring) (ONCR) | payer MEDICARE, BC, SELFPAY ==
[2023-08-17] MEDS: denosumab 60 mg SDV SUBCUT (08:34)
[2023-08-17 08:35] VITALS: BP 141/85; PULSE 65; RESP 16; TEMP 36.5; O2SAT 96
== END 2023-08-19 23:59 | disposition home or self-care (01) ==
LOC: ONCMED 07:49
PROVIDERS: PCP Family Medicine; Visit Provider Family Medicine
DX: M81.0 Age-related osteoporosis without current pathological fracture (principal)
CPT/HCPCS: 96372; J0897

== ENCOUNTER 2023-08-19 13:46 | Outpatient (CLI) | payer MEDICARE, BC, SELFPAY ==
--- NOTE | 2023-08-19 13:54 | XR_ITS ---
WS: [email or web address] SCREENING DEXA SCAN [employer] CLINICAL INFORMATION: OSTEOPOROSIS COMPARISON: 2019 FINDINGS: The L1-L4 bone mineral density measures 0.934 g/cm2. This corresponds to a T score score of -2.0 and Z score of -0.9. Left femoral neck bone mineral density measures 0.943 g/cm2. This corresponds to a T score of -0.5 an d Z score of 0.5. Right femoral neck bone mineral density measures 0.945 g/cm2. This corresponds to a T score -0.5of an d Z score of 0.5. Mean femoral neck bone mineral density measures 0.944 g/cm2. This corresponds to a T score of -0.5 an d Z score of 0.5. IMPRESSION: Osteopenia lumbar spine. Normal bone mineralization femoral necks. Patient's FRAX calculated 10 year probability for major osteoporotic fracture is 9.3% and osteoporoti c hip fracture is 1.1%. Bone mineral density lumbar spine increased 7.7% Bone mineralization femoral necks increased 5.1%
== END 2023-08-19 13:47 | disposition home or self-care (01) ==
LOC: RAD 13:46
PROVIDERS: PCP Family Medicine; Visit Provider Family Medicine
DX: Z13.820 Encounter for screening for osteoporosis (principal); M81.0 Age-related osteoporosis without current pathological fracture; M85.88 Other specified disorders of bone density and structure, other site
CPT/HCPCS: 77080

== ENCOUNTER 2023-11-01 10:52 | Outpatient (CLI) | payer MEDICARE, BC, SELFPAY ==
--- NOTE | 2023-11-01 11:00 | MR_ITS ---
WS: [email or web address] MRI HEAD WITH CONTRAST WITH ATTENTION TO THE INTERNAL AUDITORY CANALS TECHNIQUE: Sagittal T1, T2 axial, T2 axial flair, axial susceptibility weighted imaging, axial diffus ion weighted images, and coronal T2 images were obtained. Pre and post T1 axial and post T1 coronal i mages. ADC and FSPGR images. Post gadolinium images with attention to the internal auditory canals. A xial fiesta imaging. CLINICAL INFORMATION: MIXED CONDUCTIVE SENSORINEURAL HEARING LOSS,BILATERAL COMPARISON: 11/06/2021 FINDINGS: No evidence of restricted diffusion to suggest acute ischemia. Ventricular system and basilar cister ns are patent. Mild small vessel changes. Mild parenchymal volume loss. Normal posterior fossa. Marce l vascular flow voids at the skull base. No extra-axial fluid collections. No evidence of mass or mas s effect. Paranasal sinuses and mastoid air cells are well aerated. Normal posterior nasopharynx. No hemosiderin on the susceptibly weighted images. Proximal 7th and 8th cranial nerves are normal in appearance. Normal trigeminal nerve root entry zone s. No evidence of enhancing IAC or CP angle mass. No abnormal gadolinium enhancement. No other suspicious findings. IMPRESSION: 1. No evidence of restricted diffusion to suggest acute ischemia. 2. Mild small vessel changes with mild parenchymal volume loss. Small vessel changes progressed comp are to 2021. 3. No evidence of enhancing IAC or CP angle mass. 4. Normal trigeminal nerve root entry zones. 5. Paranasal sinuses are well aerated. Mastoid air cells are well aerated. 6. No other suspicious findings.
[2023-11-01] MEDS: gadobenate dimeglumine 20 mL vial IV (12:01)
== END 2023-11-01 10:53 | disposition home or self-care (01) ==
LOC: RAD 10:54
PROVIDERS: PCP Family Medicine; Visit Provider Specialist
DX: H90.6 Mixed conductive and sensorineural hearing loss, bilateral (principal)
CPT/HCPCS: 70553; A9577

== ENCOUNTER 2024-03-03 10:48 | Oncology outpatient (recurring) (ONCR) | payer MEDICARE, BC, SELFPAY ==
[2024-03-03 11:40] VITALS: BP 163/78; PULSE 68; RESP 16; TEMP 36.6; O2SAT 95
[2024-03-03] MEDS: denosumab 60 mg SDV SUBCUT (11:40)
== END 2024-03-19 23:59 | disposition home or self-care (01) ==
LOC: ONCMED 10:49
PROVIDERS: PCP Family Medicine; Visit Provider Family Medicine
DX: M81.0 Age-related osteoporosis without current pathological fracture (principal)
CPT/HCPCS: 96372; J0897

== ENCOUNTER 2024-05-10 11:48 | Outpatient (CLI) | payer MEDICARE, BC, SELFPAY ==
--- NOTE | 2024-05-10 11:53 | MM_ITS ---
WS: [id number] Bilateral screening 3D tomosynthesis digital mammogram, 05/10/2024 Clinical Data: SCREENING Comparison: 04/13/2023, 03/13/2022, 02/05/2021, 12/22/2019, 11/15/2018, 11/01/2017, 09/29/2016, 07/10/2015, 1 , 06/15/2013, 01/06/2012, 12/31/2010, 12/24/2009, 08/23/2008, 07/19/2007. Findings: The breast parenchymal pattern shows fibroglandular tissue. No spiculated masses or clustered calcifi cations are seen. There are no secondary signs of carcinoma. There is a biopsy clip in the upper oute r quadrant of the left breast unchanged. MM/[place] [id number] Impression: 1. Negative bilateral mammogram unchanged. 2. Recommend annual screening mammograms. BIRADS: 1-Negative FOLLOW UP: 1 Year Follow-up The CAD soil checker was used.
== END 2024-05-10 11:49 | disposition home or self-care (01) ==
LOC: RAD 11:49
PROVIDERS: PCP Family Medicine; Visit Provider Family Medicine
DX: Z12.31 Encounter for screening mammogram for malignant neoplasm of breast (principal)
CPT/HCPCS: 77063; 77067

== ENCOUNTER → 2024-06-08 09:09 | Outpatient (BNVA) | payer MEDICARE, BC, SELFPAY | PROVIDERS: PCP Family Medicine; Visit Provider Nurse Practitioner Family | DX: D18.01 Hemangioma of skin and subcutaneous tissue (principal); L82.1 Other seborrheic keratosis; L81.4 Other melanin hyperpigmentation; L57.8 Other skin changes due to chronic exposure to nonionizing radiation; L72.0 Epidermal cyst; L57.0 Actinic keratosis; L82.0 Inflamed seborrheic keratosis | CPT/HCPCS: 17000; 17110; 99213 ==

== ENCOUNTER 2024-10-13 08:57 | Oncology outpatient (recurring) (ONCR) | payer MEDICARE, BC, SELFPAY ==
[2024-10-13] MEDS: denosumab 60 mg SDV SUBCUT (09:26)
== END 2024-10-20 23:59 | disposition home or self-care (01) ==
LOC: ONCMED 08:58
PROVIDERS: PCP Family Medicine; Visit Provider Family Medicine
DX: M81.0 Age-related osteoporosis without current pathological fracture (principal); Z79.899 Other long term (current) drug therapy
CPT/HCPCS: 96372; J0897

== ENCOUNTER 2025-01-08 20:00 | Outpatient (CLI) | payer MEDICARE, BC, SELFPAY | END 2025-01-08 20:01 | disposition home or self-care (01) | LOC: SLEEP 21:11 | PROVIDERS: PCP Family Medicine; Visit Provider Family Medicine | DX: G47.33 Obstructive sleep apnea (adult) (pediatric) (principal) | CPT/HCPCS: 95810 ==

== ENCOUNTER 2025-03-25 14:25 | Emergency (ER) | payer MEDICARE, BC, SELFPAY ==
--- NOTE | 2025-03-25 14:29 | USR_ITS ---
PROCEDURE INFORMATION: Exam: US Duplex Left Lower Extremity Veins, Limited Exam date and time: 03/25/2025 3:30 PM Age: 69 years old Clinical indication: Swelling (edema) of limb; Lower extremity, left; Additional info: Leg swelling TECHNIQUE: Imaging protocol: Real-time duplex ultrasound of the left extremity with 2-D joyce scale, color Doppler flow and spectral waveform analysis including responses to compression and other maneuvers (when performed) with image documentation. Limited exam focused on the left lower extremity veins. COMPARISON: US renal BI* [id number] 12/25/2020 11:28 AM FINDINGS: Left deep veins: Unremarkable. The common femoral, femoral, proximal profunda femoral and popliteal veins are patent without thrombus. Normal Doppler waveforms. Normal compressibility and/or augmentation response. Superficial veins: Greater saphenous vein at the saphenofemoral junction is patent without thrombus. Soft tissues: Unremarkable. US/CV venous duplex [facility] [id number] IMPRESSION: No evidence of deep vein thrombosis.
--- OUTSIDE RECORDS SUMMARY | 2025-03-25 14:29 | XMS_ITS | Encounter Summary ---
Author Organization [facility] Address [address] [place] [address] Care Team Providers Care Sas Bi Developer Name Role Phone Geoffrey Hernandez MD Primary Care Provider + Encounter Details Date Type Department Care Team (Latest Contact Info) Description 02/19/[address] [facility] Ilan Nevarez MD NO ADDRESS ON FILE HYPERTROPHY OF BREAST (Primary Dx) Social History Tobacco Use Types Packs/Day Years Used Date Smoking Tobacco: Never Assessed Comments Unknown Sex and Gender Information Value Date Recorded Sex Assigned at Not on file Legal Sex Female 5:29 AM SUPERVISING EDITOR NEWS REEL Gender Identity Not on file Sexual Orientation Not on file documented as of this encounter Plan of Treatment Not on file documented as of this encounter Visit Diagnoses Diagnosis Hypertrophy of breast- Primary documented in this encounter Care Teams Sas Bi Developer Relationship Specialty Start Date End Date Geoffrey Hernandez MD [address] [phone] PCP - General 01/28/04 documented as of this encounter
--- OUTSIDE RECORDS SUMMARY | 2025-03-25 14:29 | XMS_ITS | Encounter Summary ---
Author Organization [facility] Address [address] [place] [address] Care Team Providers Care Spring Maker Name Role Phone Geoffrey Hernandez MD Primary Care Provider + Encounter Details Date Type Department Care Team (Latest Contact Info) Description 01/28/2004 Outpatient Historical [facility] Operating Room [address] [place] [phone] Ilan Nevarez MD NO ADDRESS ON FILE BREAST DISORDER NOS (Primary Dx) Social History Tobacco Use Types Packs/Day Years Used Date Smoking Tobacco: Never Assessed Comments Unknown Sex and Gender Information Value Date Recorded Sex Assigned at Not on file Legal Sex Female 5:29 AM STUDIO ENGINEER Gender Identity Not on file Sexual Orientation Not on file documented as of this encounter Plan of Treatment Not on file documented as of this encounter Visit Diagnoses Diagnosis Unspecified breast disorder- Primary documented in this encounter Care Teams Spring Maker Relationship Specialty Start Date End Date Geoffrey Hernandez MD [address] [place] [phone] PCP - General 01/28/04 documented as of this encounter
--- OUTSIDE RECORDS SUMMARY | 2025-03-25 14:29 | XMS_ITS | Encounter Summary ---
Author Organization [facility] Address [address] [place] [address] Care Team Providers Care Embosser Operator Name Role Phone Geoffrey Hernandez MD Primary Care Provider + Encounter Details Date Type Department Care Team (Latest Contact Info) Description 04/10/2004 Outpatient Historical HIS [facility] PLASTIC SURGERY Ilan Nevarez MD NO ADDRESS ON FILE HYPERTROPHY OF BREAST (Primary Dx) Social History Tobacco Use Types Packs/Day Years Used Date Smoking Tobacco: Never Assessed Comments Unknown Sex and Gender Information Value Date Recorded Sex Assigned at Not on file Legal Sex Female 5:29 AM BRICK YARD HAND Gender Identity Not on file Sexual Orientation Not on file documented as of this encounter Plan of Treatment Not on file documented as of this encounter Visit Diagnoses Diagnosis Hypertrophy of breast- Primary documented in this encounter Care Teams Embosser Operator Relationship Specialty Start Date End Date Geoffrey Hernandez MD [address] [phone] PCP - General 01/28/04 documented as of this encounter
--- OUTSIDE RECORDS SUMMARY | 2025-03-25 14:29 | XMS_ITS | Encounter Summary ---
Author Organization [facility] Address [address] [place] [address] Care Team Providers Care Computer Field Technician Name Role Phone Geoffrey Hernandez MD Primary Care Provider + Encounter Details Date Type Department Care Team (Latest Contact Info) Description 08/21/2003 Outpatient Historical HIS [facility] [place] [facility] Ilan Nevarez MD NO ADDRESS ON FILE HYPERTROPHY OF BREAST (Primary Dx); CERVICALGIA; JOINT PAIN-SHLDER Social History Tobacco Use Types Packs/Day Years Used Date Smoking Tobacco: Never Assessed Comments Unknown Sex and Gender Information Value Date Recorded Sex Assigned at Not on file Legal Sex Female 5:29 AM HORTICULTURAL SPECIALTY GROWER Gender Identity Not on file Sexual Orientation Not on file documented as of this encounter Plan of Treatment Not on file documented as of this encounter Visit Diagnoses Diagnosis Hypertrophy of breast- Primary Cervicalgia Pain in joint, shoulder region documented in this encounter Care Teams Computer Field Technician Relationship Specialty Start Date End Date Geoffrey Hernandez MD [address] [phone] PCP - General 01/28/04 documented as of this encounter
--- OUTSIDE RECORDS SUMMARY | 2025-03-25 14:29 | XMS_ITS | Clinical Summary ---
Author Organization [facility] Address [address] [facility] Attn: Epic [place] [address] Care Team Providers Care Drafter Apprentice Name Role Phone Geoffrey Hernandez MD Primary Care Provider + Social History Tobacco Use Types Packs/Day Years Used Date Smoking Tobacco: Never Assessed Comments Unknown Sex and Gender Information Value Date Recorded Sex Assigned at Not on file Legal Sex Female 5:29 AM RFID MANAGER Gender Identity Not on file Sexual Orientation Not on file Plan of Treatment Health Maintenance Due Date Last Done Comments DTAP/TDAP/TD VACCINES (1 - Tdap) 1973 BREAST CANCER SCREENING 1994 COLORECTAL SCREENING 1999 Colorectal Cancer Screening 1999 FIT-DNA Q 3 years 1999 FIT/FOBT Q 1 year 1999 Flex Sig/CT Colonography Q 5 years 1999 PNEUMOCOCCAL VACCINE 50+ YEARS (1 of 1 - PCV) 10/13/19 05 ZOSTER VACCINE (1 of 2) 2004 OSTEOPOROSIS SCREENING 2019 INFLUENZA VACCINE (#1) 2025 RSV VACCINE (60+ or ) (1 - 1-dose 75+ series) 2029 Care Teams Drafter Apprentice Relationship Specialty Start Date End Date Geoffrey Hernandez MD [address] [phone] PCP - General 01/28/04
[2025-03-25 14:43] VITALS: BP 155/72; PULSE 74; RESP 18; TEMP 36.7; O2SAT 98; BMI 28.3
--- NOTE | 2025-03-25 16:58 | W.ED.EXTPRO ---
HPI - Extremity Problem General: Chief complaint: Extremity Problem,Nontraumatic Stated complaint: lt leg swollen Time Seen by Provider: 03/25/25 16:54 Source: patient Mode of arrival: ambulatory Limitations: no limitations History of Present Illness: Patient is a pleasant 69-year-old female presents to ED today after she was sent here from the walk-in clinic for DVT rule out. She states she has been noticing swelling to her left leg over the past month or so. She does not have any pain to the extremity. She states she is very active and walks frequently. She does not complain of any calf discomfort. Has not noticed any worsening swelling with standing on her feet for long periods of time. She has not tried any treatments at home. She states her only medications include atorvastatin and asthma medication. She is not complaining of shortness of breath or difficulty breathing. She has not noticed any redness to the extremity. Has not noticed any numbness, tingling, loss of sensation. MD Complaint: extremity swelling Onset (ago): month(s) Location: left and lower extremity Radiation: none Relieving factors: nothing Exacerbating factors: nothing Associated symptoms: Reports no associated symptoms; Deny chest pain or fever(s) Context: recent travel Related Data Home Medications ?Medication ?Instructions ?Recorded ?Confirmed zolpidem 10 mg tablet (Ambien) 10 mg PO PRN PRN Sleep 01/24/21 03/25/25 albuterol sulfate 90 mcg/actuation 1 inh inhalation .PRN 02/28/21 03/25/25 aerosol inhaler montelukast 10 mg tablet 10 mg PO DAILY PRN Shortness Of 04/15/21 03/25/25 (Singulair) Breath epinephrine 0.3 mg/0.3 mL 0.3 mg SUBCUT PRN 06/30/22 03/25/25 injection, auto-injector atorvastatin 20 mg tablet mg PO 03/25/25 03/25/25 budesonide-formoterol HFA 160 inhalation 03/25/25 03/25/25 mcg-4.5 mcg/actuation aerosol inhaler (Symbicort) semaglutide 0.25 mg/0.05 mL mg SUBCUT 03/25/25 03/25/25 subcutaneous syringe Previous Rx's ?Medication ?Instructions ?Recorded tretinoin 0.1 % topical cream 1 applic topical DAILY #45 grams 06/30/22 Allergies Allergy/AdvReac Type Severity Reaction Status Date / Time erythromycin base Allergy upset Verified 03/25/25 14:48 stomach Review of Systems Const: Denies: fever(s), chills, body aches, fatigue or malaise Card: Denies: chest pain Resp: Denies: dyspnea Musc: Reports: extremity swelling; Denies: extremity pain, joint pain, joint swelling, joint redness, joint warmth or limited range of motion Neuro: Denies: numbness in extremities, weakness in extremities or sensory changes PFSH ED PFSH: Medical History Bilateral renal stones Microscopic hematuria Recurrent UTI History of nonmelanoma skin cancer Seasonal asthma Surgical History S/P bilateral breast reduction History of hysterectomy H/O: knee surgery Family History Mother , at age 92 Diabetes Father , at age 86 Chronic kidney disease (CKD) Social History Smoking and tobacco/nicotine status: never used tobacco/nicotine Alcohol intake: current Alcohol intake frequency: few times a month Alcohol type: wine Substance/Drug Use: never Marital status: / Current occupational status: retired Physical Exam Const: COMMON NORMALS: no acute distress, average body habitus, patient oriented x3, no limitations, healthy appearing, alert and well nourished GENERAL APPEARANCE: cooperative Resp: COMMON NORMALS: normal respiratory effort Cardio: COMMON NORMALS: regular rate and regular rhythm RATE: regular rate RHYTHM: regular rhythm Extremity: COMMON NORMALS: full ROM, capillary refill normal and no joint enlargement GENERAL: Yes normal exam except as noted OTHER: mild generalized swelling to L LE when compared to R; non-pitting; pulses normal throughout extremity; sensation normal; color is normal when compared to R; no palpable cords; no significant varicosities Neuro: COMMON NORMALS: patient oriented x3, moves all extremities, no focal motor deficits, no sensory deficits noted and gait normal SENSORIUM/ORIENTATION: Yes alert Course Vital Signs: Vital signs: Vital Signs Temperature 98.1 F 03/25/25 14:43 Pulse Rate 74 03/25/25 14:43 Respiratory Rate 18 03/25/25 14:43 Blood Pressure 155/72 03/25/25 14:43 Pulse Oximetry 98 03/25/25 14:43 Oxygen Delivery Me thod Room Air 03/25/25 14:43 MDM - Extremity (Nontraumatic) Medical Decision Making US of her left lower extremity negative for DVT. Discussed etiologies for unilateral leg edema. Recommend she follow-up with her primary care provider Dr. Sutton. We did discuss conservative therapies including elevating/compression stockings when feasible (it is hot outside and she is very active). Medical Records I reviewed the patient's medical records. Lab Data I reviewed the patient's lab results. Radiology Impressions Venous Duplex 03/25/25 14:29 IMPRESSION: No evidence of deep vein thrombosis. All radiology interpretation(s) finalized by discharge Discharge Plan Discharge Patient Disposition: Home Clinical Impression: Swelling of left lower extremity Condition: Stable Prescriptions: No Action montelukast [Singulair] 10 mg tablet 10 mg PO DAILY PRN (Reason: Shortness Of Breath) zolpidem [Ambien] 10 mg tablet 10 mg PO PRN PRN (Reason: Sleep) albuterol sulfate 90 mcg/actuation HFA aerosol inhaler 1 inh inhalation .PRN epinephrine 0.3 mg/0.3 mL auto-injector 0.3 mg SUBCUT PRN tretinoin 0.1 % cream 1 applic topical DAILY Qty: 45 3RF Rx Instructions: Apply pea-sized amount to clean, dry face nightly atorvastatin 20 mg tablet PO budesonide-formoterol [Symbicort] 160-4.5 mcg/actuation HFA aerosol inhaler inhalation semaglutide 0.25 mg/0.05 mL syringe SUBCUT Discharge Orders: Discharge ED (Routine); Ordered 03/25/25 Ordered By: Ana Maria Ac Referrals: Magdiel Sutton MD [Primary Care Provider, Family Practice] Patient Instructions: Leg Edema (ED), Patient Portal & Dario Instructions Activity Restrictions/Additional Instructions: As we discussed, your ultrasound here was negative for DVT (blood clot). We discussed other etiologies for unilateral leg swelling including lymphedema, chronic venous stasis, venous insufficiency, etc. We spoke about elevation and compression hoses if and when feasible. From an emergency standpoint, I do not feel there is any emergent or life-threatening condition present today. Recommend you follow-up with Dr. Sutton for further evaluation. It was a pleasure to care for you in the emergency department today. Print Language: Com[place]an Coding Level of Care Code ED [employer] for Kim Nichols
== END 2025-03-25 17:25 | disposition home or self-care (01) ==
PROVIDERS: Emergency Provider Physician Assistant; PCP Family Medicine
DX: R60.0 Localized edema (principal); Z85.828 Personal history of other malignant neoplasm of skin
CPT/HCPCS: 93971; 99284

== ENCOUNTER 2025-04-11 09:06 | Oncology outpatient (recurring) (ONCR) | payer MEDICARE, BC, SELFPAY ==
[2025-04-11] MEDS: denosumab 60 mg SDV SUBCUT (09:26)
== END 2025-04-19 23:59 | disposition home or self-care (01) ==
PROVIDERS: PCP Family Medicine; Visit Provider Family Medicine
DX: M81.0 Age-related osteoporosis without current pathological fracture (principal); Z79.899 Other long term (current) drug therapy
CPT/HCPCS: 96372; J0897

== ENCOUNTER 2025-05-16 08:51 | Outpatient (RCR) | payer MEDICARE, BC, SELFPAY | END 2025-05-20 23:59 | disposition home or self-care (01) | LOC: SPT 08:51 | PROVIDERS: Visit Provider Emergency Medicine | DX: I89.0 Lymphedema, not elsewhere classified (principal) | CPT/HCPCS: 97161 ==

== ENCOUNTER 2025-05-18 11:27 | Outpatient (CLI) | payer MEDICARE, BC, SELFPAY ==
--- NOTE | 2025-05-18 11:32 | MM_ITS ---
WS: [id number] BILATERAL 3D TOMOSYNTHESIS DIGITAL SCREENING MAMMOGRAPHY WITH CAD CLINICAL INFORMATION: SCREENING HISTORY: Screening mammogram. No current complaints. COMPARISON: 2023 TECHNIQUE: Bilateral CC and MLO views. FINDINGS: Scattered fibroglandular densities bilaterally. No suspicious focal mass, asymmetry, calcifications, or architectural distortion. No evidence of malignancy. Incidental punctate calcifications RIGHT breast. Biopsy clip LEFT breast. MM/MM scr tomosynthesis [id number] IMPRESSION: DENSITY: There are scattered areas of fibroglandular density. BI-RADS: 2 - Benign. FOLLOW UP: 1 Year Follow-up Recommend return to annual screening mammography.
== END 2025-05-18 11:28 | disposition home or self-care (01) ==
LOC: RAD 11:29
PROVIDERS: PCP Family Medicine; Visit Provider Family Medicine
DX: Z12.31 Encounter for screening mammogram for malignant neoplasm of breast (principal); R92.323 Mammographic fibroglandular density, bilateral breasts; Z97.8 Presence of other specified devices; R92.1 Mammographic calcification found on diagnostic imaging of breast
CPT/HCPCS: 77063; 77067

== ENCOUNTER 2025-05-21 06:30 | Outpatient (RCR) | payer MEDICARE, BC, SELFPAY | END 2025-06-19 23:59 | disposition home or self-care (01) | LOC: SPT 06:30 | PROVIDERS: PCP Family Medicine; Visit Provider Emergency Medicine | DX: I89.0 Lymphedema, not elsewhere classified (principal) | CPT/HCPCS: 97530 ==

== ENCOUNTER → 2025-05-30 14:41 | Outpatient (BNVA) | payer MEDICARE, BC, SELFPAY | PROVIDERS: PCP Family Medicine; Visit Provider Nurse Practitioner Family | DX: D18.01 Hemangioma of skin and subcutaneous tissue (principal); L82.1 Other seborrheic keratosis; L81.4 Other melanin hyperpigmentation; L57.8 Other skin changes due to chronic exposure to nonionizing radiation; L57.0 Actinic keratosis | CPT/HCPCS: 17000; 99213 ==

== ENCOUNTER 2025-07-09 19:58 | Outpatient (CLI) | payer MEDICARE, BC, SELFPAY | END 2025-07-09 19:59 | disposition home or self-care (01) | LOC: SLEEP 19:59 | PROVIDERS: PCP Family Medicine; Referring Provider Family Medicine; Visit Provider Internal Medicine Pulmonary Disease | DX: G47.30 Sleep apnea, unspecified (principal); G47.61 Periodic limb movement disorder | CPT/HCPCS: 95811 ==

== ENCOUNTER 2025-08-20 15:26 | Outpatient (CLI) | payer MEDICARE, BC, SELFPAY ==
--- NOTE | 2025-08-20 15:31 | XR_ITS ---
WS: [id number] SCREENING DEXA SCAN [facility] CLINICAL INFORMATION: OSTEOPORSIS COMPARISON: 2022 FINDINGS: The L1-L4 bone mineral density measures 1.005 g/cm2. This corresponds to a T score score of -1.5 and Z score of 0.0. Left femoral neck bone mineral density measures 0.966 g/cm2. This corresponds to a T score of -0.3 and Z score of 1.0. Right femoral neck bone mineral density measures 0.958 g/cm2. This corresponds to a T score -0.4of and Z score of 0.9. Mean femoral neck bone mineral density measures 0.962 g/cm2. This corresponds to a T score of -0.4 and Z score of 0.9. XR/XR DEXA axial skeleton* [id number] IMPRESSION: Osteopenia lumbar spine. Normal bone mineralization femoral necks. Patient's FRAX calculated 10 year probability for major osteoporotic fracture i s 9.8% and osteoporotic hip fracture is 1.3%. Bone density lumbar spine increased 7.6% Bone density femoral necks increased 1.9%
== END 2025-08-20 15:27 | disposition home or self-care (01) ==
PROVIDERS: PCP Family Medicine; Visit Provider Family Medicine
DX: Z13.820 Encounter for screening for osteoporosis (principal); Z78.0 Asymptomatic menopausal state; M85.89 Other specified disorders of bone density and structure, multiple sites
CPT/HCPCS: 77080